=== PATIENT | female | born 1945 | race Caucasian/White ===

== ENCOUNTER 2017-12-25 20:48 | Inpatient (IN) | payer MEDICARE, OTHER ==
[~2017-12-25] VITALS: Ht 180.3 cm; Wt 106.6 kg
[~2017-12-25 20:48] MED LIST: COLE625T9 PO; ERGO500014 IU; FOLI1TAB16 PO; GLYB5TAB7 PO; LAMO25TA16 PO; LEVO125T PO; LISI20TA61 PO; LOSA100T15 PO; METF-440 PO; METO-358 PO; OMEG1CAP18 PO; OMEP20CA10 PO; PIOG15TA8 PO; SITA100T PO; TIZA2TAB4 PO; VITA400C68 PO
--- NOTE | 2017-12-25 20:55 | NUR ---
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 PATIENT IS AAOX3, NAD NOTED. BREATHING EVEN AND UNLABORED. SKIN WARM AND DRY. PLACED PATIENT IMMEDIATELY ON CARDIAC AND VS MONITORING. GOWNED.
--- NOTE | 2017-12-25 20:58 | NUR ---
DR DESAI AT BEDSIDE TO EVALUATE PATIENT.
--- NOTE | 2017-12-25 21:00 | NUR ---
STARTED A SALINE LOCK ON THE RIGHT FOREARM G18, BLOOD DRAWN AND SENT TO LAB.
[2017-12-25 21:22] LABS: BASOPHILS # (AUTO) 0.1 /CMM (0.0-0.2); EOSINOPHILS % (AUTO) 2.9 % (0.0-6.0); HEMATOCRIT 43 % (33-45); HEMOGLOBIN 14.5 g/dL (11.5-14.8); LYMPHOCYTES % (AUTO) 35.4 % (20.0-44.0); MEAN CORPUSCULAR HGB CONC 34 g/dl (31.0-36.0); MEAN CORPUSCULAR VOLUME 84 fL (82-100); MONOCYTES # (AUTO) 0.6 /CMM (0.1-1.30); MONOCYTES % (AUTO) 7.2 % (2.0-12.0); NEUTROPHILS # (AUTO) 4.6 /CMM (1.8-8.9); NEUTROPHILS % (AUTO) 53.5 % (43.0-81.0); PLATELET COUNT (AUTO) 431 /CMM (150-450); RDW COEFFICIENT OF VARIATION 13.2 (11.5-15.0); RED BLOOD CELL COUNT(AUTO) 5.15 MIL/uL (4.0-5.2); WHITE BLOOD COUNT (AUTO) 8.5 K/uL (4.3-11.0)
[2017-12-25 21:34] LABS: MAGNESIUM 1.3 mg/dL (1.8-2.4)
[2017-12-25 21:39] LABS: INR 0.85 (0.85-1.15)
[2017-12-25 21:42] LABS: TROPONIN I < 0.017 ng/mL (0.00-0.056)
[2017-12-25 21:49] LABS: THYROID STIMULATING HORMONE 1.264 uIU/mL (0.358-3.74)
[2017-12-25 21:55] LABS: CALCIUM, SERUM 9.5 mg/dL (8.5-10.1); CARBON DIOXIDE 21 mmol/L (21-32); CHLORIDE 102 mmol/L (98-107); CREATININE 1.3 mg/dL (0.6-1.3); GLUCOSE 245 mg/dL (74-106); POTASSIUM 4.4 mmol/L (3.5-5.1); SODIUM SERUM 136 mmol/L (136-145); UREA NITROGEN, BLOOD 32 mg/dL (7-18)
[2017-12-25] MEDS ORDERED: MAGNESIUM OXIDE 400 MG TABLET PO ONE (22:00)
[2017-12-25 22:11] LABS: ALANINE AMINOTRANSFERASE 35 U/L (12-78); ALBUMIN 3.8 g/dL (3.4-5.0); ALKALINE PHOSPHATASE 92 U/L (46-116); ASPARTATE AMINOTRANSFERASE 25 U/L (15-37); B-TYPE NATRIURETIC PEPTIDE 195 PG/ML (0-125); BILIRUBIN,DIRECT 0.1 mg/dL (0.0-0.2); BILIRUBIN,TOTAL 0.6 mg/dL (0.2-1.0); TOTAL PROTEIN, SERUM 8.1 g/dL (6.4-8.2)
[2017-12-25] MEDS ORDERED: MAGNESIUM OXIDE 400 MG TABLET ONE (22:13)
[2017-12-25] MEDS ORDERED: FLUT16SP BNOSTRILS (22:28)
[2017-12-25] MEDS ORDERED: ERGO400T7 PO (22:28)
[2017-12-25] MEDS ORDERED: TIZA4TAB4 PO (22:28)
[2017-12-25] MEDS ORDERED: ONDANSETRON HCL/PF 4 MG/2 ML VIAL IVP PRN (22:30)
[2017-12-25] MEDS ORDERED: MAGNESIUM HYDROXIDE 30 ML UDC PO PRN (22:30)
[2017-12-25] MEDS ORDERED: Magnesium 1GM/D5W 100ML PREMIX 100 ML IV SCH (22:30)
[2017-12-25] MEDS ORDERED: IV NS 0.9% 500 ML BAG IV ONE (22:30)
[2017-12-25] MEDS ORDERED: Z GUARD REMEDY 2 OZ OINT TP PRN (22:30)
[2017-12-25] MEDS ORDERED: ACETAMINOPHEN 325 MG TABLET PO PRN (22:30)
[2017-12-25] MEDS ORDERED: ZOLPIDEM TARTRATE 5 MG TABLET PO PRN (22:30)
[2017-12-25] MEDS ORDERED: ENOXAPARIN SODIUM 40 MG/0.4 ML DISP.SYRIN SQ SCH (22:30)
[2017-12-25] MEDS ORDERED: MORPHINE SULFATE INJ 4 MG/ML DISP.SYRIN IV PRN (22:30)
[2017-12-25] MEDS ORDERED: MAG HYDROX/AL HYDROX/SIMETH 30 ML UDC PO PRN (22:30)
[2017-12-25] MEDS ORDERED: HYDROCODONE/APAP 5/325MG 1 EACH TABLET PO PRN (22:30)
[2017-12-25 23:10] VITALS: BP 154/76
--- NOTE | 2017-12-25 23:17 | NUR ---
TRANSFERRED PATIENT TO TELE BED VIA ALS PROTOCOL. EMMA RITTER AT BEDSIDE.
--- NOTE | 2017-12-25 23:38 | NUR ---
COAL SHOVELER NOTE ADMITTED 72 YEARS OLD FEMALE PT FORM ER WITH THE DX OF SVT BY EV PEREZ. PT IS AO X 4, NO SOB, NO DISTRESS OR DISCOMFORT NOTED. DENIES PAIN. ON TELE SR HR 89. SKIN INTACT. VSS. ADMITTING ORDERS CHECKED. ORIENTED PT TO HER ROOM. SIDE RAILS UP X 3 AND CALL LIGHT WITHIN EACH. CONTINUE TO MONITOR HER.
--- NOTE | 2017-12-26 00:22 | NUR ---
RN SPOKE TO JACLYN PEREZ NP, AWARE PT ON DM MEDS HOME, DECKHAND SPONGE BOAT WITH NEW ORDER OF ACCU CHECK ACHS WITH MILD SLIDING SCALE.
[2017-12-26] MEDS ORDERED: DEXTROSE 50%-WATER 50 ML DISP.SYRIN IV PRN (00:30)
[2017-12-26] MEDS ORDERED: INSULIN REGULAR, HUMAN 100 UNIT/ML 3 ML VIAL SQ PRN (00:30)
[2017-12-26 01:12] LABS: CALCIUM, SERUM 8.7 mg/dL (8.5-10.1); CARBON DIOXIDE 26 mmol/L (21-32); CHLORIDE 106 mmol/L (98-107); CREATININE 1.2 mg/dL (0.6-1.3); GLUCOSE 193 mg/dL (74-106); POTASSIUM 4.6 mmol/L (3.5-5.1); SODIUM SERUM 141 mmol/L (136-145); UREA NITROGEN, BLOOD 30 mg/dL (7-18)
[2017-12-26] MEDS ORDERED: TIZANIDINE HCL 4 MG TABLET PO SCH (02:30)
[2017-12-26] MEDS ORDERED: Medication Not On Formulary EA (Tizanidine Hcl 2 MG) PO PRN (02:30)
[2017-12-26] MEDS ORDERED: ERGOCALCIFEROL 50000 UNIT PO SCH (02:30)
[2017-12-26] MEDS ORDERED: IV NS 0.9% 1,000 ML IV SCH (02:30)
[2017-12-26] MEDS ORDERED: ERGOCALCIFEROL (VITAMIN D 2) 50,000 UNIT CAPSULE PO SCH (02:30)
[2017-12-26] MEDS ORDERED: FLUTICASONE PROPIONATE 16 GM BOTTLE NS SCH (02:30)
[2017-12-26 04:00] VITALS: BP 142/77
--- NOTE | 2017-12-26 06:33 | NUR ---
MS RN NOTE PT IN BED AWAKE, NO DISTRESS OR DISCOMFORT NOTED. DENIES PAIN. ON TELE SR HR 74. REMAIN NPO. EKG DONE SR. SIDE RAILS UP X 2 AND CALL LIGHT WITHIN REACH. WILL ENDORSE TO DAY SHIFT NURSE FOR CONTINUE TO CARE.
[2017-12-26] MEDS: BLOOD SUGAR DIAGNOSTIC 1 EACH STRIP IN SCH ×2 (07:03→12:18)
--- NOTE | 2017-12-26 07:20 | NUR ---
RN OPEN NOTES RECEIVED REPORT FROM GRINDER [employer]BON PLANT NURSE. PATIENT IS IN BED, AWAKE. ALERT AND ORIENTED TO NAME, PLACE AND TIME. NO SIGNS AND SYMPTOMS OF DISTRESS. DENIED ANY PALPITATION, DIZZINESS OR CHEST PAIN DURING THE NIGHT OR THIS MORNING. PATIENT IS NPO, PENDING CARDIO CONSULT. BED IN LOW POSITION ,LOCKED AND TWO SIDE RAILS ARE UP, CALL LIGHT WITHIN REACH FOR SAFETY. WILL CONTINUE TO ASSESS AND MONITOR PATIENT THROUGH OUT MY SHIFT
[2017-12-26 07:23] LABS: BASOPHILS % (AUTO) 0.4 % (0.0-2.0); EOSINOPHILS % (AUTO) 1.3 % (0.0-6.0); HEMATOCRIT 37 % (33-45); HEMOGLOBIN 12.4 g/dL (11.5-14.8); LYMPHOCYTES # (AUTO) 2.6 /CMM (0.8-4.8); LYMPHOCYTES % (AUTO) 36.3 % (20.0-44.0); MEAN CORPUSCULAR HGB CONC 34 g/dl (31.0-36.0); MEAN CORPUSCULAR VOLUME 86 fL (82-100); MONOCYTES # (AUTO) 0.5 /CMM (0.1-1.30); MONOCYTES % (AUTO) 6.8 % (2.0-12.0); NEUTROPHILS # (AUTO) 3.9 /CMM (1.8-8.9); NEUTROPHILS % (AUTO) 55.2 % (43.0-81.0); PLATELET COUNT (AUTO) 348 /CMM (150-450); RED BLOOD CELL COUNT(AUTO) 4.27 MIL/uL (4.0-5.2); WHITE BLOOD COUNT (AUTO) 7.1 K/uL (4.3-11.0)
[2017-12-26 07:34] LABS: CALCIUM, SERUM 8.7 mg/dL (8.5-10.1); CARBON DIOXIDE 25 mmol/L (21-32); CHLORIDE 106 mmol/L (98-107); GLUCOSE 116 mg/dL (74-106); MAGNESIUM 1.9 mg/dL (1.8-2.4); PHOSPHORUS 3.5 mg/dL (2.5-4.9); POTASSIUM 3.9 mmol/L (3.5-5.1); SODIUM SERUM 142 mmol/L (136-145); UREA NITROGEN, BLOOD 25 mg/dL (7-18)
[2017-12-26 07:37] LABS: CHOLESTEROL 232 mg/dL (<200); HDL CHOLESTEROL 50 mg/dL (40-60); LDL 163 mg/dL (0-99); TRIGLYCERIDES 107 mg/dL (30-150)
[2017-12-26 08:00] VITALS: BP 158/73
[2017-12-26] MEDS: LEVOTHYROXINE SODIUM 125 MCG TABLET PO SCH ×2 (08:04→10:56)
[2017-12-26] MEDS ORDERED: PIOGLITAZONE HCL 15 MG TABLET PO SCH (09:00)
[2017-12-26] MEDS ORDERED: COLESEVELAM HCL 625 MG PO SCH (09:00)
[2017-12-26] MEDS ORDERED: glyBURIDE 5 MG TABLET PO SCH (09:00)
[2017-12-26] MEDS ORDERED: FOLIC ACID 1 MG TABLET PO SCH (09:00)
[2017-12-26] MEDS ORDERED: METFORMIN 500 MG TABLET PO SCH (09:00)
[2017-12-26] MEDS ORDERED: LISINOPRIL (20MG) 20 MG TABLET PO SCH (09:00)
[2017-12-26] MEDS ORDERED: LINAGLIPTIN 5 MG TABLET PO SCH (09:54)
[2017-12-26] MEDS ORDERED: VITAMIN E 400 UNIT CAPSULE PO SCH (09:55)
[2017-12-26] MEDS ORDERED: LOSARTAN POTASSIUM 50 MG TABLET PO SCH (10:00)
[2017-12-26] MEDS ORDERED: LamoTRIgine 25 MG TABLET PO SCH (10:00)
[2017-12-26] MEDS ORDERED: CARVEDILOL 12.5 MG TABLET PO SCH (10:00)
[2017-12-26] MEDS ORDERED: PANTOPRAZOLE 40 MG TABLET.DR PO SCH (10:06)
[2017-12-26] MEDS ORDERED: TIZANIDINE HCL 4 MG TABLET PO PRN (10:30)
[2017-12-26 12:00] VITALS: BP 141/73
[2017-12-26] MEDS ORDERED: CARV12.52 PO (13:17)
[2017-12-26] MEDS ORDERED: MAGN400T26 PO (13:17)
--- NOTE | 2017-12-26 14:15 | NUR ---
CLUB LOUNGE ATTENDANT NOTES DISCHARGE ORDER RECEIVED AND CARRIED OUT. PATIENT IS LEAVING IN A STABLE CONDITION. NO SIGNS AND SYMPTOMS OF DISTRESS. CLEARED BY COMMODITY ANALYST. PATIENT INFORMED TO MAKE AN APPOINTMENT WITH DR HA AND SEE HIM BEFORE 01/02. [facility] APPOINT[facility] FOR[facility] AT 12:15PM. PATIENT AND HER RECEIVED ALL DISCHARGE INSTRUCTIONS AND BOTH VERBALIZED UNDERSTANDING. ALL PERSONAL BELONGING WITH PATIENT AT TIME OF DISCHARGE. PATIENT SIGNED BOTH DISCHARGE FORM AND BELONGING LIST; BOTH PLACED IN THE CHART. SKIN IS INTACT - NO NEEDS FOR PICTURES. NEW PRESCRIPTIONS GAVE TO PATIENT. PICKED UP PATIENT VIA A PRIVATE CAR AND DROVE PATIENT HOME. NO NEW CONCERNS IDENTIFIED UPON DISCHARGE
[2017-12-26] MEDS ORDERED: ENOXAPARIN SODIUM 40 MG/0.4 ML DISP.SYRIN SQ SCH ×2 (21:00)
== END 2017-12-26 14:09 | disposition home or self-care (01) | DRG 682 ==
LOC: ER 20:50 → TELE1 22:20
PROVIDERS: ADMIT Registered Nurse; ATTEND Registered Nurse
DX: N17.0 Acute kidney failure with tubular necrosis (principal); I50.33 Acute on chronic diastolic (congestive) heart failure; E11.65 Type 2 diabetes mellitus with hyperglycemia; I47.1 Supraventricular tachycardia; E83.42 Hypomagnesemia; G40.909 Epilepsy, unspecified, not intractable, without status epilepticus; E86.0 Dehydration; I11.0 Hypertensive heart disease with heart failure; E03.9 Hypothyroidism, unspecified; J45.909 Unspecified asthma, uncomplicated; Z90.721 Acquired absence of ovaries, unilateral; Z98.890 Other specified postprocedural states; Z91.018 Allergy to other foods; Z79.84 Long term (current) use of oral hypoglycemic drugs; Z79.899 Other long term (current) drug therapy; T50.905A Adverse effect of unspecified drugs, medicaments and biological substances, initial encounter; Y92.009 Unspecified place in unspecified non-institutional (private) residence as the place of occurrence of the external cause; E53.8 Deficiency of other specified B group vitamins; E78.5 Hyperlipidemia, unspecified; R19.7 Diarrhea, unspecified
CPT/HCPCS: 36415; 71045-TC; 80048-TC; 80061-TC; 80076-TC; 82962-TC; 83735-TC; 83880; 84100-TC; 84443-TC; 84484-TC; 85025-TC; 85730-TC; 87081-TC; 93307-TC; A4606; J1650; J1815; J3475; J7030; J7040; Z7610

== ENCOUNTER 2018-01-27 17:55 | Inpatient (IN) | payer MEDICARE ==
[~2018-01-27] VITALS: Ht 180.3 cm; Wt 105.4 kg
[~2018-01-27 17:55] MED LIST changes: +CARV12.52 PO; +ERGO400T7 PO; +FLUT16SP BNOSTRILS; +MAGN400T26 PO; -METO-358 PO; +TIZA4TAB4 PO
--- NOTE | 2018-01-27 18:00 | NUR ---
EPISODES OF CHEST TIGHTNESS X 1230 TODAY, PT IS PAIN FREE NOW. NAD NOTED. PT AAO X4, AMB WITH STEADY GAIT. VSS. RR EVEN AND UNLABORED. PENDING MD MOHAMUD.
[2018-01-27 18:22] LABS: BASOPHILS % (AUTO) 0.4 % (0.0-2.0); EOSINOPHILS % (AUTO) 2.1 % (0.0-6.0); HEMATOCRIT 41 % (33-45); HEMOGLOBIN 13.6 g/dL (11.5-14.8); LYMPHOCYTES # (AUTO) 2.6 /CMM (0.8-4.8); LYMPHOCYTES % (AUTO) 30.5 % (20.0-44.0); MEAN CORPUSCULAR HGB CONC 33 g/dl (31.0-36.0); MEAN CORPUSCULAR VOLUME 84 fL (82-100); MONOCYTES # (AUTO) 0.5 /CMM (0.1-1.30); MONOCYTES % (AUTO) 5.6 % (2.0-12.0); NEUTROPHILS # (AUTO) 5.4 /CMM (1.8-8.9); NEUTROPHILS % (AUTO) 61.4 % (43.0-81.0); PLATELET COUNT (AUTO) 401 /CMM (150-450); RDW COEFFICIENT OF VARIATION 13.5 (11.5-15.0); WHITE BLOOD COUNT (AUTO) 8.7 K/uL (4.3-11.0)
[2018-01-27 18:33] LABS: CARBON DIOXIDE 25 mmol/L (21-32); CHLORIDE 105 mmol/L (98-107); CREATININE 1.3 mg/dL (0.6-1.3); GLUCOSE 156 mg/dL (74-106); POTASSIUM 4.2 mmol/L (3.5-5.1); SODIUM SERUM 138 mmol/L (136-145); UREA NITROGEN, BLOOD 33 mg/dL (7-18)
[2018-01-27 18:37] LABS: INR 0.85 (0.85-1.15)
--- NOTE | 2018-01-27 18:40 | NUR ---
CALLED NURSING DRESSMAKING TEACHER AND REQUESTED A TELE BED FOR THIS PT.
[2018-01-27 18:41] LABS: TROPONIN I < 0.017 ng/mL (0.00-0.056)
[2018-01-27 18:48] LABS: B-TYPE NATRIURETIC PEPTIDE 128 PG/ML (0-125)
--- NOTE | 2018-01-27 18:49 | NUR ---
CALLED [facility] FOR PANEL CALL AND DR HERNÁNDEZ WAS PAGED.
[2018-01-27] MEDS ORDERED: IV NS 0.9% 1,000 ML IV PRN (18:53)
[2018-01-27] MEDS ORDERED: ZOLPIDEM TARTRATE 5 MG TABLET PO PRN (19:00)
[2018-01-27] MEDS ORDERED: ACETAMINOPHEN 325 MG TABLET PO PRN (19:00)
[2018-01-27] MEDS ORDERED: MAGNESIUM HYDROXIDE 30 ML UDC PO PRN (19:00)
[2018-01-27] MEDS ORDERED: ASPIRIN 325 MG TABLET PO ONE (19:00)
[2018-01-27] MEDS ORDERED: NITROGLYCERIN 0.4 MG/TAB BOTTLE SL PRN (19:00)
[2018-01-27] MEDS ORDERED: MORPHINE SULFATE INJ 4 MG/ML DISP.SYRIN IV PRN (19:00)
[2018-01-27] MEDS ORDERED: MAG HYDROX/AL HYDROX/SIMETH 30 ML UDC PO PRN (19:00)
[2018-01-27] MEDS ORDERED: HYDROCODONE/APAP 5/325MG 1 EACH TABLET PO PRN (19:00)
[2018-01-27] MEDS ORDERED: Z GUARD REMEDY 2 OZ OINT TP PRN (19:00)
[2018-01-27] MEDS ORDERED: TIZANIDINE HCL 4 MG TABLET PO SCH (19:00)
[2018-01-27] MEDS ORDERED: hydrALAZINE HCL 25 MG TABLET PO PRN (19:00)
[2018-01-27] MEDS ORDERED: FLUTICASONE PROPIONATE 16 GM BOTTLE NS PRN (19:00)
[2018-01-27] MEDS ORDERED: ENOXAPARIN SODIUM 40 MG/0.4 ML DISP.SYRIN SQ SCH (19:00)
[2018-01-27] MEDS ORDERED: ONDANSETRON HCL/PF 4 MG/2 ML VIAL IVP PRN (19:00)
[2018-01-27] MEDS ORDERED: ZINC220T PO (19:02)
[2018-01-27] MEDS ORDERED: VITA1TAB20 PO (19:02)
[2018-01-27] MEDS ORDERED: ASCO-340 PO (19:02)
[2018-01-27] MEDS ORDERED: ASPIRIN 325 MG TABLET ONE (19:36)
--- NOTE | 2018-01-27 19:56 | NUR ---
PT IS ASSIGNED TO [facility] RM: 327-2, PT IS DIAGNOSED WITH CHEST PAIN, AND DR. HERNÁNDEZ IS THE ACCEPTING MD.
--- NOTE | 2018-01-27 20:25 | NUR ---
REPORT CALLED TO CLOTHING SALES ASSISTANTSTONE CRAWLEY. WILL TRANSPORT PT VIA ACLS PROTOCOL.
[2018-01-27] MEDS ORDERED: ALBUTEROL FS 2.5 MG/0.5 ML VIAL.NEB NEB STA (20:33)
--- NOTE | 2018-01-27 20:50 | NUR ---
REGRIND MILL OPERATOR ADMIN NOTE PT ARRIVED TO UNIT VIA GURNEY AND WAS ABLE TO AMBULATE TO BED WITH STEADY GAIT. FAMILY AT BEDSIDE. DENIES CHEST PAIN AT THIS TIME. NO SIGNS OF SOB OR DISTRESS, BREATHING EVENLY AND UNLABORED ON RA. FAMILY TO BRING MED LIST. SKIN IS CLEAR. ORIENTED TO ROOM. BED IS IN LOW AND LOCKED POSITION, CALL LIGHT WITHIN REACH. WILL CONTINUE TO MONITOR PT
[2018-01-27 20:55] VITALS: BP 165/77
[2018-01-27] MEDS: CARVEDILOL 12.5 MG TABLET PO SCH ×2 (21:00→21:35)
[2018-01-27 21:30] VITALS: BP 164/75
--- NOTE | 2018-01-27 22:55 | NUR ---
NECKTIE CENTRALIZING MACHINE OPERATOR NOTE PT STATES THAT SHE HAS HAD ADVERSE REACTIONS TO COREG THAT MAKES HER ASTHMA WORSE. STATES SHE RATHER TAKE METOPROLOL. CONTACTED EVENT LIGHTING SPECIALIST ALMA DELIA, HE OK'D A ONE TIME DOSE OF METOPROLOL 100 MG
[2018-01-27] MEDS ORDERED: METOPROLOL SUCCINATE 50 MG TAB.SR.24H PO ONE (23:00)
--- NOTE | 2018-01-27 23:15 | NUR ---
MACHINE STEMMER NOTE PT SAYS SHE MADE A ERROR IN HER MED LIST AND LOSARTAN IS THE BP MED SHE TAKES AT NIGHT. CONTACTED EV FLANNERY, LOSARTAN WAS HELD DUE TO KIDNEY FUNCTION. PT WAS HESITANT ON TAKING HYDRALAZINE DUE TO NEVER TAKING THE MEDICATION BEFORE. WILL REASSESS AND MONITOR BP. Addendum: 01/28/18 at 0134 by BETHANY LLANOS BP IS NOW 151/69
[2018-01-27] MEDS ORDERED: ALBUTEROL FS 2.5 MG/0.5 ML VIAL.NEB ONE (23:28)
[2018-01-28] VITALS: BP 133/58
[2018-01-28] MEDS ORDERED: METO25TA20 GT (03:27)
[2018-01-28 04:00] VITALS: BP 133/72
[2018-01-28 04:15] VITALS: BP 133/72
--- NOTE | 2018-01-28 06:43 | NUR ---
NURSE OFFICE CLOSING NOTE PT IS IN BED AWAKE AND ALERT. STATED SHE FEELS BETTER AFTER THE BREATHING TX AND DOESN'T FEEL THE HEAVINESS ANYMORE. NO SIGNS OF SOB OR DISTRESS, BREATHING EVENLY AND UNLABORED ON RA. DENIES PAIN. ON TELE MONITOR SR 63. ALL NEEDS WERE ANTICIPATED AND MET. BED IS IN LOW AND LOCKED POSITION, CALL LIGHT WITHIN REACH, WILL ENDORSE TO DAYSHIFT
--- NOTE | 2018-01-28 07:12 | NUR ---
PRODUCTION UTILITY WORKER OPENING NOTE RECEIVED BEDSIDE SBAR REPORT ON THE PATEINT. PATIENT IS A/O X4, AWAKE AND RESPONSIVE IN BED. BED IS LOCKED IN LOWEST POSITION, SIDE RAILS UP X2. PATIENT IS AMBULATORY AND ORIENTED TO OWN ABILITIES. DENIES PAIN/DISCOMFORT AT THIS TIME. CHEST RISING EQUALLY BILATERALLY. CALL LIGHT WITHIN REACH. EDUCATED TO CALL FOR ASSISTANCE USING THE CALL LIGHT AND VERBALIZED UNDERSTANDING. ALL NEEDS ARE MET. WILL CONTINUE TO ASSESS/MONITOR THROUGHOUT THE SHIFT.
--- NOTE | 2018-01-28 07:13 | NUR ---
EXTERNAL WIRE TEMPERER READING SR 75.
[2018-01-28 07:26] LABS: BASOPHILS % (AUTO) 0.4 % (0.0-2.0); EOSINOPHILS % (AUTO) 2.1 % (0.0-6.0); HEMATOCRIT 39 % (33-45); HEMOGLOBIN 12.7 g/dL (11.5-14.8); LYMPHOCYTES % (AUTO) 42.2 % (20.0-44.0); MEAN CORPUSCULAR HGB CONC 32 g/dl (31.0-36.0); MEAN CORPUSCULAR VOLUME 85 fL (82-100); MONOCYTES # (AUTO) 0.5 /CMM (0.1-1.30); MONOCYTES % (AUTO) 6.5 % (2.0-12.0); NEUTROPHILS # (AUTO) 3.5 /CMM (1.8-8.9); NEUTROPHILS % (AUTO) 48.8 % (43.0-81.0); PLATELET COUNT (AUTO) 336 /CMM (150-450); RDW COEFFICIENT OF VARIATION 14.4 (11.5-15.0); RED BLOOD CELL COUNT(AUTO) 4.63 MIL/uL (4.0-5.2); WHITE BLOOD COUNT (AUTO) 7.1 K/uL (4.3-11.0)
[2018-01-28 07:40] LABS: CALCIUM, SERUM 9.1 mg/dL (8.5-10.1); CARBON DIOXIDE 24 mmol/L (21-32); CHLORIDE 107 mmol/L (98-107); CREATININE 1.1 mg/dL (0.6-1.3); GLUCOSE 99 mg/dL (74-106); MAGNESIUM 2.1 mg/dL (1.8-2.4); PHOSPHORUS 3.9 mg/dL (2.5-4.9); POTASSIUM 3.9 mmol/L (3.5-5.1); SODIUM SERUM 141 mmol/L (136-145); UREA NITROGEN, BLOOD 26 mg/dL (7-18)
[2018-01-28 07:48] LABS: CHOLESTEROL 219 mg/dL (<200); HDL CHOLESTEROL 56 mg/dL (40-60); LDL 149 mg/dL (0-99); TRIGLYCERIDES 109 mg/dL (30-150)
--- NOTE | 2018-01-28 07:50 | NUR ---
HOLDING BREAKFAST TRAY PER DR HA PRIOR TO CARDIAC CONSULT.
[2018-01-28 08:00] VITALS: BP 157/88
--- NOTE | 2018-01-28 08:00 | NUR ---
PATIENT STATED SHE IS DIABETIC AND HASEN EATEN IN A LONG TIME. ASKED FOR THE BG TO BE CHECKED. RN CHECKED THE BG. RECORDED 105MG/DL FASTING. NO ACTIONS TAKEN. PATIENT REASSURED.
--- NOTE | 2018-01-28 08:10 | NUR ---
DR HA AT THE BEDSIDE.
[2018-01-28 08:14] LABS: IRON, SERUM 61 ug/dl (50-175); TOTAL IRON BINDING CAPACITY 319 ug/dl (250-450)
[2018-01-28] MEDS ORDERED: IV D5/ 0.9% NACL 1,000 ML IV PRN (08:28)
[2018-01-28] MEDS ORDERED: REGADENOSON 0.4 MG/5 ML DISP.SYRIN IVP ONE (08:30)
--- NOTE | 2018-01-28 08:39 | NUR ---
ELMAAN ORDERED. SCHEDULED FOR 1566.
--- NOTE | 2018-01-28 08:41 | NUR ---
CALLED PHARMACY TO VERIFY THE MEDS. PER DR HA ADMINISTER MEDICATIONS. OK TO GIVE PRIOR TO LEXISCAN.
[2018-01-28 08:42] LABS: TROPONIN I < 0.017 ng/mL (0.00-0.056)
[2018-01-28 09:00] VITALS: BP 159/88
[2018-01-28] MEDS ORDERED: LOSARTAN POTASSIUM 50 MG TABLET PO SCH (09:00)
[2018-01-28] MEDS ORDERED: LEVOTHYROXINE SODIUM 125 MCG TABLET PO SCH (09:00)
[2018-01-28] MEDS ORDERED: METOPROLOL TARTRATE 25 MG TABLET GT SCH (09:00)
[2018-01-28] MEDS ORDERED: ALBUTEROL FS 2.5 MG/0.5 ML VIAL.NEB NEB PRN (09:00)
[2018-01-28] MEDS ORDERED: ASCORBIC ACID 500 MG TABLET PO SCH (09:00)
[2018-01-28] MEDS ORDERED: glyBURIDE 5 MG TABLET PO SCH (09:00)
[2018-01-28] MEDS ORDERED: MAGNESIUM OXIDE 400 MG TABLET PO SCH (09:00)
[2018-01-28] MEDS ORDERED: VITAMIN E 400 UNIT CAPSULE PO SCH (09:00)
[2018-01-28] MEDS ORDERED: LINAGLIPTIN 5 MG TABLET PO SCH (09:00)
[2018-01-28] MEDS ORDERED: LISINOPRIL (20MG) 20 MG TABLET PO SCH (09:00)
[2018-01-28] MEDS ORDERED: VITAMIN B COMP W-C 1 TAB TABLET PO SCH (09:00)
[2018-01-28] MEDS ORDERED: ALBUTEROL FS 2.5 MG/0.5 ML VIAL.NEB NEB ONE ×2 (09:00→12:00)
[2018-01-28] MEDS ORDERED: PIOGLITAZONE HCL 15 MG TABLET PO SCH (09:00)
[2018-01-28] MEDS ORDERED: FOLIC ACID 1 MG TABLET PO SCH (09:00)
[2018-01-28] MEDS: LamoTRIgine 25 MG TABLET PO SCH ×2 (09:35→18:15)
--- NOTE | 2018-01-28 11:22 | NUR ---
Patient's RFA IV catheter noted leaking the fluids infusing. New 22 G IV catheter inserted in LFA. Patient tolerated procedure well. RFA catheter removed with the tip intact. Oclusive dressing applied. Patein tolerated the procedure well.
[2018-01-28] MEDS: METFORMIN 500 MG TABLET PO SCH ×2 (13:27→18:15)
[2018-01-28 16:00] VITALS: BP 141/66
--- NOTE | 2018-01-28 18:40 | NUR ---
DISCHARGE ORDER RECEIVED. CLARIFIED JOSE DR HERNÁNDEZ. PAGED DR HA, DID NOT RECEIVE A CALL BACK. PER DR HERNÁNDEZ PATIENT IS OK TO LEAVE THE HOSPITAL. ALL BELONGINGS ARE ACCOUNTED FOR. BELONGINGS LIST IN SIGNED. IV CATHETER REMOVED WITH THE TIP INTACT. OCCLUSIVE DRESSING APPLIED. PATIENT TOLERATED PROCEDURE WELL. DISCHARGE PAPERS GIVEN TO PATIENT. EDUCTED PATIENT/FAMILY AT THE BEDSIDE. VERBALIZED UNDERSTANDING. PATIENT LEFT THE UNIT IS STABLE CONDITION ACCOMPANIED BY THE FAMILY.
[2018-01-29] MEDS ORDERED: PANTOPRAZOLE 40 MG TABLET.DR PO SCH (07:30)
[2018-01-29] MEDS ORDERED: ZINC SULFATE 220 MG CAPSULE PO SCH (09:00)
[2018-01-30] MEDS ORDERED: ERGOCALCIFEROL (VITAMIN D 2) 50,000 UNIT CAPSULE PO SCH (09:00)
== END 2018-01-28 18:39 | disposition home or self-care (01) | DRG 206 ==
LOC: ER 18:02 → TELE 20:05 → MED 01-28 12:11
PROVIDERS: ADMIT Internal Medicine; ATTEND Internal Medicine
DX: M94.0 Chondrocostal junction syndrome [Tietze] (principal); E44.0 Moderate protein-calorie malnutrition; E11.9 Type 2 diabetes mellitus without complications; I47.1 Supraventricular tachycardia; G89.4 Chronic pain syndrome; I10 Essential (primary) hypertension; E78.5 Hyperlipidemia, unspecified; J45.909 Unspecified asthma, uncomplicated; Z98.890 Other specified postprocedural states; Z90.721 Acquired absence of ovaries, unilateral; Z88.5 Allergy status to narcotic agent; Z91.018 Allergy to other foods; Z79.84 Long term (current) use of oral hypoglycemic drugs; Z79.899 Other long term (current) drug therapy; I70.0 Atherosclerosis of aorta; E66.9 Obesity, unspecified; Z68.32 Body mass index [BMI] 32.0-32.9, adult; K21.9 Gastro-esophageal reflux disease without esophagitis; E03.9 Hypothyroidism, unspecified; E83.42 Hypomagnesemia
CPT/HCPCS: 36415; 71045-TC; 80048-TC; 80061-TC; 82746; 82962-TC; 83540-TC; 83735-TC; 83880; 84100-TC; 84439-TC; 84443-TC; 84484-TC; 85025-TC; 85730-TC; 87081-TC; A4606; A9502; J1650; J2785; J7030; Z7610

== ENCOUNTER 2019-09-21 20:45 | Emergency (ER) | payer MEDICARE, OTHER ==
[~2019-09-21] VITALS: Ht 177.8 cm; Wt 102.1 kg
[2019-09-21 20:45] VITALS: BP 159/82
[~2019-09-21 20:45] MED LIST changes: +ASCO-340 PO; -CARV12.52 PO; -COLE625T9 PO; -ERGO400T7 PO; -FLUT16SP BNOSTRILS; +LISI-604 PO; -LISI20TA61 PO; -LOSA100T15 PO; +LOSA100T31 PO; +METO25TA20 GT; -OMEG1CAP18 PO; -OMEP20CA10 PO; +OMEP20CA15 PO; -TIZA2TAB4 PO; -TIZA4TAB4 PO; +VITA1TAB20 PO; +ZINC220T4 PO
[2019-09-21] MEDS ORDERED: IBUPROFEN 600 MG TABLET PO ONE ×2 (21:27→21:30)
== END 2019-09-21 22:10 | disposition home or self-care (01) ==
LOC: ER 20:50
DX: S00.81XA Abrasion of other part of head, initial encounter (principal); G43.909 Migraine, unspecified, not intractable, without status migrainosus; E11.9 Type 2 diabetes mellitus without complications; I10 Essential (primary) hypertension; J45.909 Unspecified asthma, uncomplicated; Z98.890 Other specified postprocedural states; Z88.5 Allergy status to narcotic agent; Z79.899 Other long term (current) drug therapy; Z88.8 Allergy status to other drugs, medicaments and biological substances; W01.0XXA Fall on same level from slipping, tripping and stumbling without subsequent striking against object, initial encounter; Y93.89 Activity, other specified; Y92.89 Other specified places as the place of occurrence of the external cause; Y99.8 Other external cause status
CPT/HCPCS: 70450-TC; 70486-TC; 72125-TC

== ENCOUNTER 2021-01-06 12:45 | Emergency (ER) | payer MEDICARE, OTHER ==
[~2021-01-06] VITALS: Ht 180.3 cm; Wt 95.3 kg
[~2021-01-06 12:45] MED LIST changes: -LISI-604 PO; +LISI20TA31 PO; -METO25TA20 GT; +METO25TA20 PO
--- NOTE | 2021-01-06 12:45 | NUR ---
PT BIB SELF C/O CHEST DISCOMFORT FOR 2 DAYS NON RADIATING. PT IS AAOX4, NOT IN RESPIRATORY DISTRESS, HOOKED TO [employer] COOK, KEPT RESTED AND COMFORTABLE. WILL CONTINUE TO MONITOR.
--- NOTE | 2021-01-06 12:57 | NUR ---
SEEN AND EXAMINED BY .
--- NOTE | 2021-01-06 13:00 | NUR ---
IV LINE ESTABLISHED BLOOD DRAWN AND SENT TO LAB.
--- NOTE | 2021-01-06 13:07 | NUR ---
INSULATION TECHNICIAN AT BEDSIDE FOR XRAY.
[2021-01-06 13:10] LABS: BASOPHILS % (AUTO) 0.3 % (0.0-2.0); EOSINOPHILS % (AUTO) 0.1 % (0.0-6.0); HEMATOCRIT 43 % (33-45); HEMOGLOBIN 14.2 g/dL (11.5-14.8); LYMPHOCYTES # (AUTO) 1.3 /CMM (0.8-4.8); LYMPHOCYTES % (AUTO) 16.1 % (20.0-44.0); MEAN CORPUSCULAR HGB CONC 33 g/dl (31.0-36.0); MEAN CORPUSCULAR VOLUME 87 fL (82-100); MONOCYTES # (AUTO) 0.4 /CMM (0.1-1.30); MONOCYTES % (AUTO) 4.5 % (2.0-12.0); NEUTROPHILS # (AUTO) 6.5 /CMM (1.8-8.9); PLATELET COUNT (AUTO) 428 /CMM (150-450); RED BLOOD CELL COUNT(AUTO) 4.97 MIL/uL (4.0-5.2); WHITE BLOOD COUNT (AUTO) 8.2 K/uL (4.3-11.0)
--- NOTE | 2021-01-06 13:13 | NUR ---
COVID SPECIMEN OBTAINED AND SENT TO LAB.
[2021-01-06 13:18] LABS: CALCIUM, SERUM 9.2 mg/dL (8.5-10.1); CARBON DIOXIDE 25 mmol/L (21-32); CHLORIDE 104 mmol/L (98-107); CREATININE 1.2 mg/dL (0.6-1.3); GLUCOSE 177 mg/dL (74-106); POTASSIUM 3.9 mmol/L (3.5-5.1); SODIUM SERUM 140 mmol/L (136-145); UREA NITROGEN, BLOOD 25 mg/dL (7-18)
[2021-01-06] MEDS ORDERED: FLUT16SP NS (14:06)
[2021-01-06] MEDS ORDERED: ALIR150P SQ (14:06)
[2021-01-06] MEDS ORDERED: LEVO500T90 PO (14:06)
[2021-01-06] MEDS ORDERED: METH4TAB17 PO (14:06)
[2021-01-06] MEDS ORDERED: EMPA25TA PO (14:06)
--- NOTE | 2021-01-06 14:27 | NUR ---
BED 324-2
[2021-01-06 15:33] VITALS: BP 121/64
--- NOTE | 2021-01-06 15:33 | NUR ---
IV removed. Catheter intact and site benign. Pressure and 4x4 applied to site. No bleeding noted. Patient discharged to home in stable condition. Written and verbal after care instructions given. Patient verbalizes understanding of instruction.
== END 2021-01-06 15:39 | disposition home or self-care (01) ==
LOC: ER 12:48 → TELE 14:42 → UNDOADMIN 14:42 → ER 15:39
DX: I49.1 Atrial premature depolarization (principal); R00.2 Palpitations; Z20.822 Contact with and (suspected) exposure to COVID-19; Z88.5 Allergy status to narcotic agent; Z88.8 Allergy status to other drugs, medicaments and biological substances; Z91.018 Allergy to other foods; Z90.49 Acquired absence of other specified parts of digestive tract; E11.9 Type 2 diabetes mellitus without complications; Z79.84 Long term (current) use of oral hypoglycemic drugs; I10 Essential (primary) hypertension; J44.9 Chronic obstructive pulmonary disease, unspecified
CPT/HCPCS: 36415; 71045-TC; 80048-TC; 84484-TC; 85025-TC; C9803

== ENCOUNTER 2021-03-15 23:08 | Inpatient (IN) | payer MEDICARE, OTHER ==
[~2021-03-15] VITALS: Ht 179.1 cm; Wt 90.7 kg
[~2021-03-15 23:08] MED LIST changes: +ALIR150P SQ; -ASCO-340 PO; +EMPA25TA PO; +FLUT16SP NS; -GLYB5TAB7 PO; +LEVO500T90 PO; -LISI20TA31 PO; +METH4TAB17 PO; -VITA1TAB20 PO; -ZINC220T4 PO
--- NOTE | 2021-03-15 23:23 | NUR ---
RAC 18G PIV STARTED. BLOOD DRAWN AND SENT TO LAB
--- NOTE | 2021-03-15 23:25 | NUR ---
BIB C/O NONRADIATING MIDSTERNAL CP SINCE LAST NIGHT. PER PT REPORT CHEST PAIN LAST NIGHT AND AGAIN TODAY 30 ADOLESCENT PSYCHIATRIST
[2021-03-15 23:28] LABS: BASOPHILS # (AUTO) 0.1 /CMM (0.0-0.2); BASOPHILS % (AUTO) 0.6 % (0.0-2.0); EOSINOPHILS % (AUTO) 1.9 % (0.0-6.0); HEMATOCRIT 44 % (33-45); HEMOGLOBIN 14.4 g/dL (11.5-14.8); LYMPHOCYTES # (AUTO) 3.7 /CMM (0.8-4.8); LYMPHOCYTES % (AUTO) 41.2 % (20.0-44.0); MEAN CORPUSCULAR HGB CONC 32 g/dl (31.0-36.0); MEAN CORPUSCULAR VOLUME 88 fL (82-100); MONOCYTES # (AUTO) 0.7 /CMM (0.1-1.30); MONOCYTES % (AUTO) 7.6 % (2.0-12.0); NEUTROPHILS # (AUTO) 4.4 /CMM (1.8-8.9); NEUTROPHILS % (AUTO) 48.7 % (43.0-81.0); PLATELET COUNT (AUTO) 444 /CMM (150-450); RED BLOOD CELL COUNT(AUTO) 5.08 MIL/uL (4.0-5.2)
[2021-03-15 23:36] LABS: CALCIUM, SERUM 9.4 mg/dL (8.5-10.1); CARBON DIOXIDE 24 mmol/L (21-32); CHLORIDE 103 mmol/L (98-107); CREATININE 1.1 mg/dL (0.6-1.3); GLUCOSE 194 mg/dL (74-106); POTASSIUM 3.8 mmol/L (3.5-5.1); SODIUM SERUM 140 mmol/L (136-145); UREA NITROGEN, BLOOD 30 mg/dL (7-18)
[2021-03-16] VITALS (7 sets, daily range): BP systolic 122–154; BP diastolic 48–81
--- NOTE | 2021-03-16 00:26 | NUR ---
covid swab collected and sent out
--- NOTE | 2021-03-16 01:18 | NUR ---
CALL FROM LAB. RAPID COVID NEGATIVE.
--- NOTE | 2021-03-16 01:23 | NUR ---
TELE 112-1
[2021-03-16] MEDS ORDERED: MORPHINE SULFATE INJ 2 MG/ML DISP.SYRIN IV PRN (01:30)
[2021-03-16] MEDS ORDERED: ZOLPIDEM TARTRATE 5 MG TABLET PO PRN (01:30)
[2021-03-16] MEDS ORDERED: MAG HYDROX/AL HYDROX/SIMETH 30 ML UDC PO PRN (01:30)
[2021-03-16] MEDS ORDERED: MAGNESIUM HYDROXIDE 30 ML UDC PO PRN (01:30)
[2021-03-16] MEDS ORDERED: HYDROCODONE/APAP 5/325MG TABLET PO PRN (01:30)
[2021-03-16] MEDS ORDERED: ACETAMINOPHEN 325 MG TABLET PO PRN (01:30)
[2021-03-16] MEDS ORDERED: Z GUARD REMEDY 2 OZ OINT TP PRN (01:30)
[2021-03-16] MEDS ORDERED: ONDANSETRON HCL/PF 4 MG/2 ML VIAL IVP PRN (01:30)
--- NOTE | 2021-03-16 02:10 | NUR ---
RN OPENING NOTE ADMIT 75 YEAR OLD WHITE FEMALE TO MARTÍNEZ IN ROOM 112 ON TELE MONITORING,WITH DIAGNOSIS: CHEST PAIN,ALERT ORIENTED X4 VERBALLY RESPONSIVE ABLE TO MAKE HER NEEDS KNOWN,ON ROOM AIR 95% IV SITE IS ON RIGHT AC #18 INTACT PATENT,CONTINENT TO BOWEL/BLADDER,AMBULATORY WITH ASSIST,CALL LIGHT WITHIN REACH,BED IN LOW POSITION AND MILADY,SAFETY MEASURE IMPLEMENT CONTINUE TO MONITOR.
[2021-03-16] MEDS: ENOXAPARIN SODIUM 40 MG/0.4 ML DISP.SYRIN SQ SCH ×2 (02:28→21:58)
--- NOTE | 2021-03-16 07:20 | NUR ---
RN NOTE PATIENT REMAINS ON ALERT ORIENTED X4 VERBALLY RESPONSIVE ON ROOM AIR,NO SOB NOT ACUTE DISTRESS NOTED ENDORSE NEXT COMING SHIFT FOR CONTINUATION OF CARE
--- NOTE | 2021-03-16 07:30 | NUR ---
RN OPENING NOTES Patient is alert and orientedX 4. Received on room air with 02 sat of 98%. IV [id number] gauze to right ac noted intact and flushing well. NO c/o chest pain or discomfort. Bed is in lowest and locked position. Call light with in reach.
[2021-03-16] MEDS: PANTOPRAZOLE 40 MG TABLET.DR PO SCH (09:34)
[2021-03-16] MEDS: ASPIRIN EC 81 MG TABLET.DR PO SCH (09:34)
[2021-03-16] MEDS ORDERED: IOHEXOL-350 100 ML VIAL IV ONE (10:00)
[2021-03-16] MEDS ORDERED: IV NS 0.9% 250 ML IV ONE (10:01)
[2021-03-16] MEDS ORDERED: NITROGLYCERIN 0.4 MG/TAB BOTTLE ONE (10:48)
[2021-03-16] MEDS ORDERED: METOPROLOL TARTRATE INJ 5 MG/5 ML AMPUL ONE ×2 (10:48→11:13)
[2021-03-16] MEDS: METOPROLOL TARTRATE INJ 5 MG/5 ML AMPUL IVP PRN ×10 (10:50→11:35)
[2021-03-16] MEDS ORDERED: NITROGLYCERIN 0.4 MG/TAB BOTTLE SL ONE (11:00)
[2021-03-16] MEDS ORDERED: IV NS 0.9% 500 ML IV ONE (11:00)
--- NOTE | 2021-03-16 11:00 | NUR ---
Patient was transported to clinical laboratory service teacher for CT angio of heart. No c/o pain or discomfort. Patient left in stable condition.
--- NOTE | 2021-03-16 13:00 | NUR ---
Patient came from laborer in stable condition. IV site noted with redness and swelling measuring 6.5 cm L x 8 cm width. No c/o tenderness upon touch. No s/s of skin breakdown. IV access removed. Informed MD Param Nunez and received order for warm compress to the site for infiltration. Warm compress applied and will monitor. New iv access started to left forearm 24 gauze.
--- NOTE | 2021-03-16 18:46 | NUR ---
RN CLOSING NOTES Patient is alert and oriented X 4. Received on room air with 02 sat of 97%. IV access 24 gauze to left forearm noted intact and flushing well. No c/o chest pain or discomfort.Patient's previous iv site to right ac improved and noted with decrease in redness and swelling. Bed is in lowest and locked position. Call light with in reach.Will endorse to next shift for CALI and to monitor patient site of infiltration.
--- NOTE | 2021-03-16 20:00 | NUR ---
RN NOTE RECEIVED PT IN BED A/A/O X4, ON RA SATING 95%,PT ON TELE MONITOR SHOWING SR WITH HR IN 70s. SAFETY MEASURES IN PLACE.
[2021-03-17] VITALS: BP 127/73
[2021-03-17 04:00] VITALS: BP 129/69
[2021-03-17 06:32] LABS: BASOPHILS % (AUTO) 0.6 % (0.0-2.0); EOSINOPHILS % (AUTO) 3.3 % (0.0-6.0); HEMATOCRIT 39 % (33-45); HEMOGLOBIN 13.1 g/dL (11.5-14.8); LYMPHOCYTES # (AUTO) 2.6 K/uL (0.8-4.8); LYMPHOCYTES % (AUTO) 44.2 % (20.0-44.0); MEAN CORPUSCULAR HGB CONC 33 g/dl (31.0-36.0); MEAN CORPUSCULAR VOLUME 87 fL (82-100); MONOCYTES # (AUTO) 0.4 K/uL (0.1-1.30); MONOCYTES % (AUTO) 7.3 % (2.0-12.0); NEUTROPHILS # (AUTO) 2.6 K/uL (1.8-8.9); NEUTROPHILS % (AUTO) 44.6 % (43.0-81.0); PLATELET COUNT (AUTO) 382 K/uL (150-450); RED BLOOD CELL COUNT(AUTO) 4.54 MIL/uL (4.0-5.2); WHITE BLOOD COUNT (AUTO) 5.9 K/uL (4.3-11.0)
--- NOTE | 2021-03-17 07:10 | NUR ---
report given to oncoming shift for stephan.
[2021-03-17 07:11] LABS: THYROID STIMULATING HORMONE 0.851 uIU/mL (0.358-3.74)
[2021-03-17 07:25] LABS: CALCIUM, SERUM 8.9 mg/dL (8.5-10.1); PHOSPHORUS 4.3 mg/dL (2.5-4.9); POTASSIUM 3.8 mmol/L (3.5-5.1)
--- NOTE | 2021-03-17 07:30 | NUR ---
RN OPENING NOTE PT A/Ox4 LAYING IN BED SEMIFOWLER'S BREATHING RA SPO2 98%, NO SIGNS OF RESP DISTRESS OR SOB. PT DENIES PAIN CURRENTLY. PT SKIN INTACT, AMBULATES WITH STEADY GAIT. LFA #24 FLUSHED, PATENT AND INTACT, NO S/S OF INFECTION OR INFILTRATION, SL. ALL PT SAFETY PRECAUTIONS IN PLACE, WILL CONT TO MONITOR
[2021-03-17 08:00] VITALS: BP 152/84
[2021-03-17] MEDS: PANTOPRAZOLE 40 MG TABLET.DR PO SCH (08:27)
[2021-03-17] MEDS: ASPIRIN EC 81 MG TABLET.DR PO SCH (08:27)
[2021-03-17] MEDS ORDERED: ASPI-1420 PO (10:01)
--- NOTE | 2021-03-17 12:51 | NUR ---
RN N OTE PT DISCHARGED IN STABLE CONDITION. ALL BELONGINGS WITH PT
== END 2021-03-17 12:50 | disposition home or self-care (01) | DRG 303 ==
LOC: ER 23:09 → TELE1 03-16 01:49
PROVIDERS: ADMIT Nurse Practitioner Acute Care; ATTEND Nurse Practitioner Acute Care
DX: I25.10 Atherosclerotic heart disease of native coronary artery without angina pectoris (principal); Z20.822 Contact with and (suspected) exposure to COVID-19; I10 Essential (primary) hypertension; Z79.84 Long term (current) use of oral hypoglycemic drugs; E11.9 Type 2 diabetes mellitus without complications; J45.909 Unspecified asthma, uncomplicated; E03.9 Hypothyroidism, unspecified; E78.5 Hyperlipidemia, unspecified; Z90.721 Acquired absence of ovaries, unilateral; Z90.49 Acquired absence of other specified parts of digestive tract; Z98.890 Other specified postprocedural states; Z88.5 Allergy status to narcotic agent; Z88.8 Allergy status to other drugs, medicaments and biological substances; Z91.018 Allergy to other foods; Z79.899 Other long term (current) drug therapy; Z90.5 Acquired absence of kidney; Z79.890 Hormone replacement therapy; K76.0 Fatty (change of) liver, not elsewhere classified; K83.8 Other specified diseases of biliary tract
CPT/HCPCS: 36415; 71045-TC; 75574; 76700-TC; 80048-TC; 80061-TC; 83735-TC; 84100-TC; 84443-TC; 84484-TC; 85025-TC; 87081-TC; 93307-TC; C9803; G0378; J1650; J3490; J7050; Q9967

== ENCOUNTER 2025-02-07 00:02 | Emergency (ER) | payer MEDICARE, OTHER ==
[~2025-02-07] VITALS: Ht 177.8 cm; Wt 87.1 kg
[~2025-02-07 00:02] MED LIST changes: -ALIR150P SQ; +ASPI-1420 PO; -LEVO500T90 PO; -METH4TAB17 PO
[2025-02-07] MEDS ORDERED: IBUPROFEN 400 MG TABLET ONE (00:32)
[2025-02-07] MEDS: IBUPROFEN 400 MG TABLET PO ONE (00:35)
[2025-02-07 03:32] VITALS: BP 145/70; TEMP 98; O2SAT 97
== END 2025-02-07 03:37 | disposition home or self-care (01) ==
LOC: ER 00:12
DX: M54.9 Dorsalgia, unspecified (principal); M85.80 Other specified disorders of bone density and structure, unspecified site; E03.9 Hypothyroidism, unspecified; E11.9 Type 2 diabetes mellitus without complications; I10 Essential (primary) hypertension; J45.909 Unspecified asthma, uncomplicated; Z79.82 Long term (current) use of aspirin; Z79.84 Long term (current) use of oral hypoglycemic drugs; Z79.899 Other long term (current) drug therapy; Z88.5 Allergy status to narcotic agent; Z90.49 Acquired absence of other specified parts of digestive tract; Z90.721 Acquired absence of ovaries, unilateral; Z91.018 Allergy to other foods; Z91.09 Other allergy status, other than to drugs and biological substances
CPT/HCPCS: 72074-TC